=== PATIENT | male | born 1980 | race Caucasian/White ===

== ENCOUNTER 2020-10-24 15:52 | Emergency (ER) | payer MEDICAID, SELFPAY ==
[2020-10-24 15:54] VITALS: BP 144/84; PULSE 97; RESP 16; TEMP 37; O2SAT 99; BMI 19.2
--- NOTE | 2020-10-24 16:14 | RAD_ITS ---
STUDY: X-RAY - RIGHT SHOULDER REASON FOR EXAM: Male, 40 years old. Fall 4 days ago. Right shoulder pain. TECHNIQUE: 2 view(s) of the shoulder on 4 images. COMPARISON: None. FINDINGS: Normal glenohumeral articulation. Normal acromioclavicular joint. Normal acromion. Normal humeral head and visualized proximal humerus. The soft tissue structures are unremarkable. Normal visualized pulmonary apex. RAD/Shoulder min 2 Views IMPRESSION: No acute abnormality of the right shoulder. Electronically Signed: Mick Machado MD at 16:37 EST , Service support ,
--- NOTE | 2020-10-24 16:15 | RAD_ITS ---
STUDY: X-RAY - RIGHT CLAVICLE REASON FOR EXAM: Male, 40 years old. Fall 4 days ago. Right shoulder pain. TECHNIQUE: 2 view(s) of the clavicle. COMPARISON: None. FINDINGS: Normal clavicle. Normal acromioclavicular articulation. Normal visualized sternoclavicular articulation. Normal visualized pulmonary apex. RAD/Clavicle IMPRESSION: No acute abnormality in the right clavicle. Electronically Signed: Mick Machado MD at 16:37 EST , Service support ,
[2020-10-24] MEDS: Acetaminophen 500 MG Tablet 1000 MG PO (16:24)
--- NOTE | 2020-10-24 16:49 | ED.DCSUM_ITS ---
- ER Visit Summary Date of Service: 10/24/20 Chief Complaint: Right shoulder pain History of Present Illness: The patient is a 40 M with no primary care physician. He is right-hand dominant. 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 He states that 4 or 5 days ago he slipped on the ice and fell. States that he did not began having pain in his shoulder until 2 days after that. Says states that he has an aching pain in his right shoulder that is 9 out of 10 at worst and 6 out of 10 currently. Is worsened by movement. Is relieved by rest and Aleve. He reports that he has paresthesias in the back of his hand that come and go. Denies any weakness or loss of function. He denies any other injuries. Physical Examination: Vitals: Stable. Afebrile. Neck: No vertebral tenderness. Full ROM without difficulty. Cleared by NEXUS criteria. Back: No vertebral tenderness. General: A&O x 3. NAD. Cardiovascular exam: Regular rate and rhythm, no murmur, rub or gallop. Respiratory exam: Chest nontender. No crepitus. Clear to auscultation bilaterally. No wheezes or stridor. Abdominal exam: Soft, nontender, nondistended, normal bowel sounds. No pain in RUQ or LUQ specifically. No peritoneal signs. Extremity: Mild tenderness palpation over the distal third of his right clavicle. He has no point tenderness over the AC joint. He has moderate tenderness palpation over the right trapezius muscle. He has no vertebral tenderness. He has mild tenderness palpation over the lateral deltoid. There is no overlying erythema or warmth to suggest a septic joint. He has no pain with short arc movements. He has normal sensation to light touch in C5-T1 distribution. He has normal median/ulnar/radial nerve function both motor and sensory distributions. At this time he has no paresthesias to the posterior surface of his hand. Test Results: Clinical Impression(s) from Imaging Studies Shoulder X-Ray 10/24/20 16:14 IMPRESSION: No acute abnormality of the right shoulder. Electronically Signed: Mick Machado MD at 16:37 EST , Service support , Clavicle X-Ray 10/24/20 16:15 IMPRESSION: No acute abnormality in the right clavicle. Electronically Signed: Mick Machado MD at 16:37 EST , Service support , Emergency Department Course and Treatment: Patient was given Tylenol p.o. He was placed in a sling. Treatment Plan: At this time I suspect the patient's pain is really more due to his trapezius muscle than the shoulder joint itself. However, he will be discharged with naproxen and instructed to follow-up with Dr. Moore in 1 week if not improving. Return to the emergency department for any worsening symptoms. Disposition: To home in improved and stable condition. Impression: 1. Right shoulder pain, acute. This note was generated with mywaves dictation software. It may contain incorrect words, spelling, and punctuation that were not noted in review of the chart prior to signing ED Disposition - Plan for ED Patient: Instructions: ED Shoulder Pain, Uncertain Cause Prescriptions: Naproxen [Naprosyn] 500 mg PO BID #14 tablet Referrals: Abdulaziz Moore MD [STAFF PHYSICIAN] - 1 Week if not improving
[2020-10-24 17:08] VITALS: BP 140/68; PULSE 90; RESP 18; O2SAT 97
== END 2020-10-24 17:09 | disposition home or self-care (01) ==
LOC: ED 16:38
PROVIDERS: Emergency Provider Emergency Medicine
DX: M25.511 Pain in right shoulder (principal); M54.2 Cervicalgia; R20.2 Paresthesia of skin; R05 Cough; Z72.0 Tobacco use
CPT/HCPCS: 73000; 73030; 99283

== ENCOUNTER 2020-10-26 21:01 | Emergency (ER) | payer MEDICAID, SELFPAY ==
[2020-10-26 21:02] VITALS: BP 141/86; PULSE 89; RESP 18; TEMP 36.2; O2SAT 99; BMI 20.9
--- NOTE | 2020-10-26 21:30 | ED.VISSUMM ---
- ER Visit Summary Date of Service: 10/26/20 Chief Complaint: Left rib pain History of Present Illness: The patient is a 40 M who presents with left rib pain that began yesterday after a fall. Patient states he was walking when he fell and landed on his left side. Patient denies any head injury or loss of consciousness. Patient states the pain feels like a tightness or tension over his left lower ribs. Patient states the pain is worse with movement. Patient denies any paresthesias or weakness. Patient denies any other injuries. Patient is a smoker and admits to a cough. Patient denies any shortness of breath. Physical Examination: Vital signs are stable. Patient is afebrile. Patient is in no acute distress. Oral mucosa is pink and moist. Neck is supple. Trachea is midline. There is no JVD. Heart was regular rate and rhythm. Lungs are clear and equal bilateral. There is adequate respiratory effort. There is reproducible tenderness over the left lower ribs, over the sixth and seventh rib area anteriorly. Abdomen is soft. Bowel sounds are normal. There is no tenderness. Cranial nerves II through XII are intact. There is no focal motor or sensory deficits noted. Extremities are intact. There is no calf tenderness or edema. Test Results: X-rays of the left ribs were obtained. There are 5 views. On my interpretation, there is no fracture. There is no pneumothorax. There is no cardiomegaly. There is no acute cardiopulmonary process. Radiologist also interpreted the x-ray and agrees. Emergency Department Course and Treatment: Patient was advised of his findings. Patient was instructed to use ice to the area. Patient was instructed to take 10-15 deep breaths every hour while awake to prevent atelectasis and pneumonia. Patient was instructed to take Tylenol or ibuprofen as needed for pain. Patient was instructed to follow-up with his primary care physician in 5 to 7 days. Patient understood and was agreeable with the plan. All questions were answered. Disposition: Discharge home Impression: 1. Left chest wall contusion This note was generated with [employer] dictation software. It may contain incorrect words, spelling, and punctuation that were not noted in review of the chart prior to signing ED Disposition - Plan for ED Patient: Disposition: Home or Assisted Living Diagnosis: Contusion of left chest wall Instructions: ED Chest Wall Contusion Referrals: Giovanni Aldana MD [STAFF PHYSICIAN] - 5-7 Days
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
[2020-10-26 22:31] VITALS: RESP 18; O2SAT 98
== END 2020-10-26 22:32 | disposition home or self-care (01) ==
PROVIDERS: Emergency Provider Emergency Medicine
DX: S20.212A Contusion of left front wall of thorax, initial encounter (principal); W19.XXXA Unspecified fall, initial encounter; Y93.01 Activity, walking, marching and hiking; Y92.9 Unspecified place or not applicable; Y99.9 Unspecified external cause status; R05 Cough; F17.200 Nicotine dependence, unspecified, uncomplicated
CPT/HCPCS: 71101; 99282

== ENCOUNTER 2021-05-30 10:26 | Emergency (ER) | payer MEDICAID, SELFPAY ==
[2021-05-30 10:27] VITALS: BP 159/97; PULSE 103; RESP 18; TEMP 36.6; O2SAT 97; BMI 17.6
--- NOTE | 2021-05-30 10:37 | RAD_ITS ---
STUDY: X-RAY CHEST REASON FOR EXAM: 41-year-old male patient with history of shortness of breath., TECHNIQUE: Single AP portable view of the chest. COMPARISON: Comparison is made with prior study dated 11/20/2013. FINDINGS: Hyperinflation. The lungs are clear. There is no demonstrated pleural abnormality. Normal size heart. Normal mediastinum and jr. Normal visualized pulmonary arteries. Normal visualized aortic arch and descending thoracic aorta. Normal visualized thoracic spine. Normal visualized ribs, clavicles, and shoulders. There is no demonstrated abnormality of the visualized soft tissue structures of the upper abdomen. RAD/Chest 1 View (Portable) IMPRESSION: Hyperinflation. Electronically Signed: Julien Adames MD at 11:29 EDT , Service support ,
--- NOTE | 2021-05-30 10:41 | EX.ED.VIS.UR ---
HPI HPI - URI History of Present Illness Chief Complaint: Shortness of Breath Detail of Chief Complaint: Cough and URI symptoms. Informant: patient Onset/Context/Timing Onset: Weeks Context: Gradual Onset Timing: Continuous Current Severity: Mild Maximum Severity: Mild Associated Symptoms Associated Symptoms: Positive for Nasal Congestion, Myalgias and Productive Cough; Negative for Headache, Nausea, Vomiting and Hemoptysis Narrative Narrative: 41-year-old male patient with past medical history currently on no medications. He does smoke. States that last week he has had URI symptoms. Now mild shortness of breath. Worse cough of clear phlegm. No hemoptysis. Denies fever or chills. Denies nausea, vomiting or diarrhea. Was not vaccinated for Covid. Prior similar symptoms: Yes Recent Illness/Hospitalization: No ROS ROS ED ROS Narrative Cough. Rhinorrhea. Nasal congestion. Mild shortness of breath. Review of Systems ROS Unobtainable: Denies due to encephalopathy Constitutional Constitutional ED: Denies chills or fever(s) Eyes Eyes: Denies change in vision ENT ENT ED: Reports rhinorrhea; Denies ear pain or sore throat Cardiovascular Cardiovascular: Denies chest pain Respiratory/Chest Respiratory/Chest: Reports cough, dyspnea and sputum Gastrointestinal Gastrointestinal: Denies abdominal pain, diarrhea, nausea or vomiting Genitourinary Genitourinary ED: Denies dysuria Musculoskeletal Musculoskeletal: Denies myalgias Integumentary Denies rash Neurologic Neurologic: Denies headache(s) Psychiatric Psychiatric: Denies depression Endocrine Endocrinology: Denies polyuria Hematologic/Lymphatic Hematologic/Lymphatic: Denies easy bruising Allergic/Immunologic Allergic/Immunologic ED: Denies urticaria [facility] Medical History (Updated 05/30/21 @ 11:[address] Sage Mejia MD) Migraine Home Medications acetaminophen-codeine 1 - 2 tab PO Q6H PRN #12 tablet 06/29/16 [Rx Last Taken Unknown] naproxen 500 mg PO BID #14 tab 10/24/20 [Rx Last Taken Unknown] albuterol sulfate [Proventil HFA] 2 inh INHALATION Q8H PRN #6.7 g 05/30/21 [Rx Last Taken Unknown] prednisone 40 mg PO DAILY 7 Days #14 tab 05/30/21 [Rx Last Taken Unknown] Allergy/AdvReac Type Severity Reaction Status Date / Time No Known Allergies Allergy Verified 05/30/21 10:29 Social History Smoking Status: Current every day smoker tobacco type: cigarettes EXAM Physical Exam Narrative Exam Narrative: Middle-age male no acute distress vital signs stable afebrile. Pulse ox 97% room air. HEENT exam unremarkable. Neck nontender no JVD. No lymphadenopathy. Lungs expiratory wheezes throughout. Patient is a smoker. No rales or rhonchi. Heart regular rhythm rate about 100 no murmur. Abdomen soft nontender. Moving all 4 extremities. No edema. Neurologically awake and alert with no focal motor deficits. Const Vital Signs: 05/30/21 10:27 05/30/21 11:02 Temperature 98 F Temperature Source Temporal Pulse Rate 103 H Respiratory Rate 18 Respiratory Effort Normal Respiratory Depth Normal Respiratory Pattern Normal Blood Pressure 159/97 H Blood Pressure Mean 117 Pulse Ox 97 Oxygen Delivery Method Room Air Positive well nourished and well developed; Negative for obese, cachectic or contractures General Appearance ED: well developed and NAD; Negative for cachectic, contractures, cyanotic, diaphoretic or pallor Nutritional Appearance: Negative for cachectic or obese HEENT normocephalic and atraumatic External Ear: external ears normal Eyes PERRL and EOMs intact bilaterally General Eye ED: Negative for pale conjunctiva or scleral icterus Neck no lymphadenopathy, supple, no meningeal signs and no JVD General: Negative for anterior neck swelling Resp normal respiratory effort and No clear to auscultation bilaterally Effort and Inspection: Negative for retractions Auscultation: wheezes; Negative for rales, rhonchi or diminished lung sounds Cardio S1 normal heart sound, S2 normal heart sound and no murmurs Rate: regular rate Rhythm: regular rhythm GI non-tender, non-distended and no masses Inspection: Negative for abdominal distention Auscultation: normoactive bowel sounds Palpation: soft; Negative for tender or guarding Back/Spine no CVA tenderness Extremity normal to inspection and full ROM General Extremety ED: Negative for cyanosis or tenderness General Extremity: Negative for cyanosis Neuro oriented x3 Sensorium / Orientation: alert, oriented to person, oriented to place and oriented to time; Negative for orientation impaired, lethargic or stuporous Motor Exam: strength 5/5 throughout Psych mental status grossly normal Attitude: No agitated Mood & Affect: Negative for depressed or tearful Skin General Skin Exam: Negative for jaundice or pallor Lesions: no lesions Rashes: no rashes MDM MDM MDM Narrative Medical decision making narrative: Prednisone 40 mg a day for a week. Perhaps cast for the day.Middle-age male URI symptoms chest x-ray for possible pneumonia and rapid Covid test. Clinically he looks well he is not hypoxic he does not look septic or toxic. Repeat exam patient is doing well on 11:26 AM will be discharged home. Inhaler Lab Data Attestation: I reviewed the patient's lab results. Lab results narrative: Covid negative. Radiography Diagnostic Testing: Portable chest x-ray shows no acute normality. Normal cardiac silhouette. Interpreted by myself. No infiltrate. No edema. Discharge Plan Triage Chief Complaint: Shortness of Breath ED Provider: Sage Mejia Dx/Rx/DC Orders Clinical Impression: Bronchitis Instructions: ED Bronchitis, No Antibiotic (Adult) Prescriptions: New prednisone 20 mg tablet 40 mg PO DAILY 7 Days Qty: 14 RF: 0 albuterol sulfate [Proventil HFA] 90 mcg/actuation HFA aerosol inhaler 2 inh inhalation Q8H PRN (Reason: shortness of breath or wheezing) Qty: 6.7 RF: 1 No Action acetaminophen-codeine 1 TABLET tablet 1 - 2 tab PO Q6H PRN (Reason: Pain) Qty: 12 RF: 0 naproxen 500 MG tablet 500 mg PO BID Qty: 14 RF: 0 Primary Care Provider: Care Physician,No Primary Referrals: Giovanni Aldana MD [STAFF PHYSICIAN] - Care Physician,No Primary [Primary Care Provider] - Activity Restrictions/Additional Instructions: Have to stop smoking. Inhaler. 1 to 2 puffs as needed. Prednisone daily for the next week. Follow-up if not improving. Disposition Disposition: Home, Self Care
== END 2021-05-30 11:43 | disposition home or self-care (01) ==
LOC: ED 11:40
PROVIDERS: Emergency Provider Emergency Medicine
DX: J40 Bronchitis, not specified as acute or chronic (principal); Z20.822 Contact with and (suspected) exposure to COVID-19; F17.210 Nicotine dependence, cigarettes, uncomplicated; Z79.1 Long term (current) use of non-steroidal anti-inflammatories (NSAID); Z79.52 Long term (current) use of systemic steroids; Z79.899 Other long term (current) drug therapy
CPT/HCPCS: 71045; 87426; 99282

== ENCOUNTER 2021-07-17 12:42 | Emergency (ER) | payer MEDICAID, SELFPAY ==
[2021-07-17 12:42] VITALS: BP 186/100; PULSE 98; RESP 24; TEMP 36.4; O2SAT 97; BMI 17.6
--- NOTE | 2021-07-17 13:13 | ED.VIS.DYS ---
HPI History of Present Illness Chief Complaint: Shortness of Breath Narrative Narrative: 41-year-old male presenting with shortness of breath and a cough for about a week. Patient states that he does not have any fevers, chills, body aches. He states is been tested multiple times for COVID-19 and always is negative. He does admit to smoking at least a pack of cigarettes per day up until he got sick this last time. Any symptoms of been going on a week. He continues to smoke half pack cigarettes per day. He states he has not been formally diagnosed with COPD or asthma. [facility] Medical History Migraine Home Medications albuterol sulfate [Ventolin HFA] 1 - 2 puff INHALATION Q4H PRN PRN #8.5 g 07/17/21 [Rx Last Taken Unknown] prednisone 50 mg PO DAILY 5 Days #25 tab 07/17/21 [Rx Last Taken Unknown] Allergy/AdvReac Type Severity Reaction Status Date / Time No Known Allergies Allergy Verified 07/17/21 12:44 Social History Smoking Status: Current every day smoker tobacco type: cigarettes ROS ROS ED Constitutional Constitutional ED: Denies chills or fever(s) Eyes Eyes: Denies blurry vision or diplopia ENT ENT ED: Denies rhinorrhea or sore throat Cardiovascular Cardiovascular: Denies chest pain or palpitations Respiratory/Chest Respiratory/Chest: Reports cough, dyspnea and dyspnea on exertion Gastrointestinal Gastrointestinal: Denies abdominal pain, nausea or vomiting Genitourinary Genitourinary ED: Denies dysuria or hematuria Musculoskeletal Musculoskeletal: Denies arthralgias, myalgias or neck pain Integumentary Denies Abrasions or rash Neurologic Neurologic: Denies headache(s) or paresthesias EXAM Physical Exam Const Vital Signs: 07/17/21 12:42 07/17/21 13:30 07/17/21 13:35 Temperature 97.6 F L Temperature Source Temporal Pulse Rate 98 72 Respiratory Rate 24 H 18 Respiratory Effort Non-Labored Short of Breath Respiratory Pattern Normal Blood Pressure 186/100 H Blood Pressure Mean 128 Pulse Ox 97 Oxygen Delivery Method Room Air Room Air 07/17/21 15:20 Temperature Temperature Source Pulse Rate Respiratory Rate 16 Respiratory Effort Respiratory Pattern Blood Pressure 154/85 H Blood Pressure Mean Pulse Ox 96 Oxygen Delivery Method Positive well nourished General Appearance ED: NAD HEENT Reports moist mucous membranes atraumatic Eyes PERRL and EOMs intact bilaterally Resp Auscultation: wheezes throughout Cardio regular rate and regular rhythm Neuro oriented x3 and CN's II-XII intact bilaterally Sensorium / Orientation: alert Skin Lesions: no lesions Rashes: no rashes MDM MDM MDM Narrative Medical decision making narrative: Patient presenting with shortness of breath. On initial examination he is wheezing. I will give him prednisone and breathing treatments. He does not have any symptoms of a viral syndrome. Will reevaluate him after treatments on reevaluation the patient feels much improved. His respiratory rate is not 16. His pulse ox is 96%. I counseled him that he would likely need to discontinue smoking as he continues to smoke even though he is wheezing. He states that he is planning to discontinue this. He will be given a prednisone burst for 5 days as well as an albuterol inhaler. Is given return precautions. Patient stable for discharge. Impression: 1. Bronchitis with wheezing Discharge Plan Triage Chief Complaint: Shortness of Breath ED Provider: Wes Colindres Dx/Rx/DC Orders Instructions: ED Bronchitis with Wheezing (Adult) Prescriptions: New prednisone 10 mg tablet 50 mg PO DAILY 5 Days Qty: 25 RF: 0 albuterol sulfate [Ventolin HFA] 90 mcg/actuation HFA aerosol inhaler 1 - 2 puff inhalation Q4H PRN PRN (Reason: Wheezing) Qty: 8.5 RF: 0 Primary Care Provider: Care Physician,No Primary Referrals: Mery Schaefer MD [STAFF PHYSICIAN] - As soon as possible Care Physician,No Primary [Primary Care Provider] - Disposition Disposition: Home, Self Care Discharge Date/Time: 07/17/21 15:21
[2021-07-17] MEDS: Albuterol 2.5 MG/3 ML VIAL.NEB. INHALATION (13:24)
[2021-07-17] MEDS: Ipratropium/Albuterol Sulfate 3 ML AMPUL.NEB INHALATION (13:24)
[2021-07-17 13:30] VITALS: PULSE 72; RESP 18
[2021-07-17 13:35] VITALS: O2SAT 97
[2021-07-17] MEDS: predniSONE 20 MG Tablet 60 MG PO (13:37)
--- NOTE | 2021-07-17 13:51 | CM.ED ---
SW Note Referral Source: Case Find Referral Reason: No Primary Care Physician (PCP) SW reviewed chart and noted that patient has no PCP. SW provided patient with list of [facility] and [facility] Physician List for reference. SW also provided patient with handout ?Where to go When?. No other issues or concerns voiced at this time. SW remains available for any additional needs. Plan: Provided patient with PCP information Flori BUTLER
[2021-07-17 15:20] VITALS: BP 154/85; RESP 16; O2SAT 96
== END 2021-07-17 15:21 | disposition home or self-care (01) ==
PROVIDERS: Emergency Provider Student in an Organized Health Care Education/Training Program
DX: J40 Bronchitis, not specified as acute or chronic (principal); R06.2 Wheezing; F17.210 Nicotine dependence, cigarettes, uncomplicated; Z79.52 Long term (current) use of systemic steroids; Z79.899 Other long term (current) drug therapy
CPT/HCPCS: 94640; 99283; A4216

== ENCOUNTER 2021-08-01 16:05 | Emergency (ER) | payer MEDICAID, SELFPAY ==
[2021-08-01] VITALS (7 sets, daily range): BP systolic 133–164; BP diastolic 89–102; PULSE 74–99; RESP 16–22; TEMP 36.2; O2SAT 93–96; BMI 34.0
--- NOTE | 2021-08-01 16:30 | EKG12_ITS ---
Test Reason : SOB Blood Pressure : / mmHG Vent. Rate : 098 BPM Atrial Rate : 098 BPM P-R Int : 144 ms QRS Dur : 080 ms QT Int : 336 ms P-R-T Axes : 072 084 069 degrees QTc Int : 428 ms Normal sinus rhythm Normal ECG Confirmed by TARA AMARAL, ARLIN ([id number]), order editor TED GREEN ([id number]) on 08/02/2021 11:28:29 AM Referred By: CORTEZ Confirmed By:ARLIN PACHECO MD
--- NOTE | 2021-08-01 16:32 | EDS_ITS ---
HPI History of Present Illness Chief Complaint: Shortness of Breath Narrative Narrative: Patient presenting with shortness of breath and wheezing. He was recently seen by myself for similar symptoms. He does not have any fever, chills, body aches. He states he did a prednisone burst and has been using his Ventolin inhaler. He told the triage nurse that he has some pressure and he points to the upper aspect of his chest but when I asked him specifically says it feels like it is tight like when he is wheezing. He does not have radiation of this pain. He is not dizzy or lightheaded. Patient states he continues to smoke until about 24 hours ago. He states he tapered himself down first and then quit smoking. He states he has a follow-up with Dr. Thomas coming up but was told to come to the ER for a second evaluation. Patient denies any cardiac history. No DVT history or PE history and no risk factors. He states he has been tested several times for COVID-19 and has not been positive. [facility] Medical History Migraine Home Medications albuterol sulfate 1 inh INHALATION Q6H PRN #8.5 g 08/01/21 [Rx Last Taken Unknown] prednisone 50 mg PO DAILY 5 Days #25 tab 08/01/21 [Rx Last Taken Unknown] Allergy/AdvReac Type Severity Reaction Status Date / Time No Known Allergies Allergy Verified 08/01/21 16:07 Social History Smoking Status: Current every day smoker tobacco type: cigarettes ROS ROS ED Constitutional Constitutional ED: Denies chills or fever(s) Eyes Eyes: Denies blurry vision or diplopia ENT ENT ED: Denies rhinorrhea or sore throat Cardiovascular Cardiovascular: Denies chest pain, orthopnea or palpitations Respiratory/Chest Respiratory/Chest: Reports cough and dyspnea; Denies orthopnea or sputum Gastrointestinal Gastrointestinal: Denies abdominal pain or nausea Genitourinary Genitourinary ED: Denies dysuria or hematuria Musculoskeletal Musculoskeletal: Denies arthralgias or myalgias Integumentary Denies abscess or rash Neurologic Neurologic: Denies headache(s) or paresthesias Psychiatric Psychiatric: Denies anxiety or depression EXAM Physical Exam Const Vital Signs: 08/01/21 16:05 08/01/21 16:48 08/01/21 16:50 Temperature 97.2 F L Temperature Source Temporal Pulse Rate 96 99 Respiratory Rate 22 H 16 Respiratory Effort Respiratory Depth Respiratory Pattern Normal Blood Pressure 164/102 H Blood Pressure Mean 122 Pulse Ox 95 93 Oxygen Delivery Method Room Air Room Air 08/01/21 16:51 08/01/21 17:42 08/01/21 18:02 Temperature Temperature Source Pulse Rate 74 96 Respiratory Rate 16 20 H Respiratory Effort Short of Breath Respiratory Depth Normal Respiratory Pattern Normal Blood Pressure 133/89 H Blood Pressure Mean 103 Pulse Ox 94 95 Oxygen Delivery Method Room Air Room Air Room Air Positive well nourished General Appearance ED: NAD; Negative for pallor HEENT Reports moist mucous membranes atraumatic Eyes PERRL and EOMs intact bilaterally Resp normal respiratory effort Auscultation: wheezes expiratory wheezes Cardio regular rate and regular rhythm Neuro oriented x3, CN's II-XII intact bilaterally and no sensory deficits noted Sensorium / Orientation: alert Motor Exam: strength 5/5 throughout Psych mental status grossly normal Thought Process: normal thought process Skin General Skin Exam: Negative for jaundice or pallor Rashes: no rashes MDM MDM MDM Narrative Medical decision making narrative: 41-year-old male presenting with shortness of breath. He does describe describe some tightness that is in his chest which is similar to previous episodes when he has been wheezing. He has no formal diagnosis of COPD but is a smoker. He states that he quit smoking 24 hours ago and weaned himself down since his last visit although the patient still smells like cigarettes. I suspect this tightness is from wheezing and probably undiagnosed COPD as it does not appear to be anginal in nature. Given that the michelle schwarz has been here several times without blood work-up I will check basic labs, troponin, chest x-ray. In addition to this I will give him Solu-Medrol and breathing treatments. EKG on my interpretation shows a sinus rhythm with a ventricular rate of 98 bpm without sign of ischemic change or dysrhythmia. Chest x-ray my interpretation shows no acute cardiopulmonary process and the radiologist does agree. He does not have any viral symptoms so I do not need to test for COVID-19. Patient CBC and BMP are unremarkable. Troponin is 8. I do not suspect ACS. Patient feels better after breathing treatments and Solu- Medrol. He is counseled to keep it standing from smoking. He will follow-up with Dr. Thomas. I did refill his albuterol and gave him another prednisone burst. Lab Data Attestation: I reviewed the patient's lab results. Labs: Laboratory Results - last 24 hr 08/01/21 08/01/21 16:40 16:40 WBC 7.1 RBC 4.99 Hgb 16.5 Hct 48.3 MCV 96.8 H MCH 33.1 H MCHC 34.2 RDW Std Deviation 44.1 H RDW Coeff of Alice 12.5 Plt Count 295 MPV 8.6 Immature Gran % (Auto) 0.300 Neut % (Auto) 48.5 Lymph % (Auto) 33.4 [place] % (Auto) 10.3 H Eos % (Auto) 6.2 H Baso % (Auto) 1.3 H Absolute Neuts (auto) 3.5 Absolute Lymphs (auto) 2.37 Nucleated RBC % 0 Sodium 139 Potassium 4.0 Chloride 105 Carbon Dioxide 28.0 Anion Gap 6 BUN 4 L Creatinine 0.96 Estim Creat Clear Calc 110.02 Est GFR (MDRD) Af Amer 110 Est GFR (MDRD) Non-Af 91 BUN/Creatinine Ratio 4.2 L Glucose 95 Calcium 9.0 Troponin I High Sens 8 Radiography Diagnostic Testing: Clinical Impression(s) from Imaging Studies Chest X-Ray 08/01/21 16:56 IMPRESSION: No radiographic evidence of acute cardiopulmonary disease. at 1713 Reported and signed by: Ricardo Salazar MD Electronically Signed: Ricardo Salazar MD at 17:12 EST Tel , Service support , Discharge Plan Triage Chief Complaint: Shortness of Breath ED Provider: Wes Colindres Dx/Rx/DC Orders Instructions: ED Bronchitis with Wheezing (Adult) Prescriptions: New albuterol sulfate 90 mcg/actuation HFA aerosol inhaler 1 inh inhalation Q6H PRN (Reason: shortness of breath or wheezing) Qty: 8.5 RF: 0 prednisone 10 mg tablet 50 mg PO DAILY 5 Days Qty: 25 RF: 0 Primary Care Provider: Edwin Thomas NP Referrals: Edwin Thomas NP, LIQUID FLAVOR COMPOUNDER-C [Primary Care Provider] - Disposition Disposition: Home, Self Care
[2021-08-01] MEDS: MethylPREDNISolone 125 MG/2 ML Vial IV (16:42)
[2021-08-01 16:46] LABS: Absolute Lymphocyte Count 2.37 X10^3/uL (0.83-4.51); Absolute Neutrophil Count 3.5 X10^3/uL (2.0-7.7); Basophil# 0.09 X10^3/uL; Basophil% 1.3 % (0-1); Eosinophil# 0.44 X10^3/uL; Eosinophils% 6.2 % (0-5); Hematocrit 48.3 % (40-54); Hemoglobin 16.5 g/dL (13.0-16.5); Lymphocyte # 2.37 X10^3/ul (0.83-4.51); Lymphocyte % 33.4 % (19-41); Mean Corp Hgb Conc 34.2 g/dL (32-36); Mean Corpuscular Hgb 33.1 pg (27.0-32.0); Mean Corpuscular Volume 96.8 fL (80-94); Mean Platelet Vol. 8.6 fl (6.2-12.0); Monocyte# 0.73 X10^3/uL; Monocyte% 10.3 % (0-10); NRBC Flagged by Analyzer 0 % (0-5); Neutrophil # 3.45 X10^3/uL (2.7-7.7); Neutrophil % 48.5 % (47-70); Platelet Count 295 K/mm3 (150-450); RBC Distribution Width CV 12.5 % (11.6-14.6); RBC Distribution Width SD 44.1 fl (35.1-43.9); Red Blood Count 4.99 M/mm3 (4.6-6.2); White Blood Count 7.1 K/mm3 (4.4-11.0)
[2021-08-01] MEDS: Albuterol 2.5 MG/3 ML VIAL.NEB. INHALATION (16:48)
[2021-08-01] MEDS: Ipratropium/Albuterol Sulfate 3 ML AMPUL.NEB INHALATION (16:48)
--- NOTE | 2021-08-01 16:56 | RAD_ITS ---
HISTORY: dyspnea EXAMINATION/TECHNIQUE: XR Chest 1 View: Portable upright AP chest x-ray COMPARISON: 05/30/21 FINDINGS: LINES/DEVICES: None. LUNGS: No consolidation, edema or effusion. No pneumothorax. MEDIASTINUM AND CARDIOVASCULAR STRUCTURES: Cardiac silhouette not enlarged. Central airways and mediastinal contour are unremarkable. BONES AND SOFT TISSUES: No acute bony abnormalities. RAD/Chest 1 View (Portable) IMPRESSION: No radiographic evidence of acute cardiopulmonary disease. at 1713 Reported and signed by: Ricardo Salazar MD Electronically Signed: Ricardo Salazar MD at 17:12 EST Tel , Service support ,
[2021-08-01 17:06] LABS: Anion Gap 6 (5-15); BUN 4 mg/dL (7-18); BUN/Creat Ratio 4.2 RATIO (10-20); Chloride 105 mmol/L (98-107); Creatinine, Serum 0.96 mg/dL (0.70-1.30); EST Glomerular Filtration Rate 91 mL/min (>60); Est Glom Filt Rate - Afr Amer 110 mL/min (>60); Estimated Creatinine Clearance 110.02 ml/min; Glucose 95 mg/dL (74-106); Sodium Level 139 mmol/L (136-145); Troponin-I HS 8 pg/mL (3.0-78.0)
== END 2021-08-01 18:14 | disposition home or self-care (01) ==
PROVIDERS: Emergency Provider Student in an Organized Health Care Education/Training Program; PCP Nurse Practitioner Family
DX: R06.02 Shortness of breath (principal); R06.2 Wheezing; F17.210 Nicotine dependence, cigarettes, uncomplicated
CPT/HCPCS: 71045; 80048; 84484; 85025; 93005; 94640; 96374; 99284

== ENCOUNTER 2021-10-29 09:55 | Emergency (ER) | payer MEDICAID, SELFPAY ==
[2021-10-29 09:56] VITALS: BP 143/86; PULSE 82; RESP 18; TEMP 35.9; O2SAT 99; BMI 18.3
--- NOTE | 2021-10-29 10:54 | CT_ITS ---
EXAM: CT ANGIOGRAPHY CHEST WITHOUT AND WITH INTRAVENOUS CONTRAST CLINICAL INDICATION: Acute onset back pain after pushing vehicle out of snow TECHNIQUE: Helically acquired angiography images were obtained of the chest without and with intravenous contrast. This CT exam was performed using one or more of the following dose reduction techniques: automated exposure control, adjustment of the mA and/or kV according to patient size, and/or use of iterative reconstruction technique. This report was created using Tap[employer] report generation technology. MIP reconstructed images were created and reviewed. CONTRAST: IV 100mL [id number] COMPARISON: None. FINDINGS: PULMONARY ARTERIES: Unremarkable. Normal in caliber. No evidence of pulmonary embolism. AORTA: Unremarkable. Normal in caliber. No evidence of dissection. GREAT VESSELS OF AORTIC ARCH: Unremarkable. Normal in caliber. No evidence of dissection. LUNGS AND PLEURAL SPACES: Numerous thin-walled cysts in the upper more than lower lung zones. No discrete pulmonary nodule/mass. No airspace consolidation. No groundglass opacities. No pleural effusion or thickening. HEART: Unremarkable. Heart size is normal. No pericardial effusion. No signs of right heart strain. MEDIASTINUM: Unremarkable. No mediastinal or hilar adenopathy. Esophagus is unremarkable. No hiatal hernia. THYROID: Unremarkable. No thyroid lesions. BONES/JOINTS: Mild compression fracture of T6 involving the superior endplate, age-indeterminate. No suspicious lytic or blastic abnormality. CT/CTA Chest W/WO Contrast IMPRESSION: 1. No thoracic aortic aneurysm/dissection. No central or segmental pulmonary embolism. 2. Numerous upper lobe dominant parenchymal cysts may represent centrilobular emphysema although other causes of cystic lung disease possible. 3. Mild T6 compression fracture. Electronically Signed: Eric Sanabria MD ([place]) at 12:02 EST ,
--- NOTE | 2021-10-29 11:05 | EDS_ITS ---
HPI History of Present Illness Chief Complaint: Back Informant: patient Narrative Narrative: Patient is a 41-year-old male with history of COPD and tobacco use presenting with back pain. Patient states he was pushing his wound that was stuck in the snow. 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 This was this morning. He suddenly felt 3-4 pops in his back and he helped. He had immediate severe pain and felt that the wind was knocked out of him. He states now whenever he takes a deep breath he has pain. He states the pain is worse behind both of his shoulder blades. He denies any shortness of breath but notes it is worse if he takes a deep breath. Also worse if he tries to lift up his arms. He denies any associated numbness or tingling. No abdominal pain, nausea or vomiting. No syncope. States it does radiate into his chest as well. Prior similar symptoms: No PFSH PFSH Medical History COPD (chronic obstructive pulmonary disease) Dyspnea Migraine Tobacco abuse Home Medications albuterol sulfate 1 inh INHALATION Q6H PRN #8.5 g 08/01/21 [Rx Last Taken Unknown] budesonide-formoterol HFA 160 mcg-4.5 mcg/actuation aerosol inhaler 2 puff INHALATION BID #10.2 g 08/08/21 [Rx Last Taken Unknown] cyclobenzaprine 10 mg PO TID PRN #14 tab 10/29/21 [Rx Last Taken Unknown] hydrocodone-acetaminophen 1 tab PO Q6H PRN 3 Days #12 tab 10/29/21 [Rx Last Taken Unknown] Allergy/AdvReac Type Severity Reaction Status Date / Time No Known Allergies Allergy Verified 10/29/21 09:59 Family History Daughter No problems noted. Son Asthma Father Throat cancer Social History Smoking Status: Current every day smoker tobacco type: cigarettes alcohol intake: current alcohol intake frequency: holidays/special occasions only Alcohol type: hard liquor substance use type: does not use what type of physical activity do you participate in: none do you feel safe at home: Yes ROS ROS ED Constitutional Constitutional ED: Denies chills or fever(s) Eyes Eyes: Denies change in vision ENT ENT ED: Denies sore throat Cardiovascular Cardiovascular: Reports chest pain Respiratory/Chest Respiratory/Chest: Denies dyspnea or sputum Gastrointestinal Gastrointestinal: Denies abdominal pain, nausea or vomiting Musculoskeletal Musculoskeletal: Reports back pain; Denies arthralgias, myalgias or neck pain Integumentary Denies rash Neurologic Neurologic: Denies headache(s), paresthesias or weakness Psychiatric Psychiatric: Denies depression EXAM Physical Exam Const Vital Signs: 10/29/21 09:56 Temperature 96.7 F L Temperature Source Temporal Pulse Rate 82 Respiratory Rate 18 Blood Pressure 143/86 H Blood Pressure Mean 105 Pulse Ox 99 Oxygen Delivery Method Room Air Positive well nourished and well developed General Appearance ED: well developed and other thin HEENT Reports moist mucous membranes Negative for trauma Eyes PERRL and EOMs intact bilaterally Neck supple and no JVD General: Negative for tenderness Resp normal respiratory effort and clear to auscultation bilaterally Cardio regular rate, regular rhythm and no murmurs Cardio Narrative: 2+ radial and PT pulses GI normal to inspection, nondistended, normoactive bowel sounds Back/Spine Back/Spine Narrative: No midline tenderness. Not highly reproducible on exam. He does have some mild tenderness between the spine and left scapula. Extremity normal to inspection General Extremety ED: Negative for edema or tenderness General Extremity: Negative for edema Neuro oriented x3 and no sensory deficits noted Sensorium / Orientation: alert Motor Exam: strength 5/5 throughout Psych mental status grossly normal Skin no rashes or lesions noted and no wounds MDM MDM MDM Narrative Medical decision making narrative: Patient is evaluated for chest and back pain after he tried to move his car. The pain is not highly reproducible and does not localize well. Blood pressure significant for mild hypertension. He has equal peripheral pulses. I am concerned that he might have a dissection or pneumothorax that is causing his pain on top of muscle skeletal etiology. CTA of the chest obtained which does not show any acute aortic dissection or other acute mediastinal abnormalities. No pneumothorax. He does have an age- indeterminate mild compression fracture of T6. His pain does not be worse in the paraspinal region of T6 but he does not have pinpoint tenderness over the b one. Will refer for Ortho/spine follow-up outpatient. Will treat with muscle relaxer and a short course of [place]. Patient does have improvement of pain after dose of morphine. Patient is neuro vastly intact and ambulatory. He is given a work note for today. He is counseled on return precautions. He verbalized agreement understands plan. Discharged home in stable condition. Lab Data Attestation: I reviewed the patient's lab results. Labs: Laboratory Results - last 24 hr 10/29/21 10/29/21 11:20 11:20 WBC 8.0 RBC 4.68 Hgb 16.1 Hct 46.8 MCV 100.0 H MCH 34.4 H MCHC 34.4 RDW Std Deviation 45.4 H RDW Coeff of [place] 12.2 Plt Count 334 MPV 8.6 Immature Gran % (Auto) 0.500 Neut % (Auto) 56.9 Lymph % (Auto) 29.3 [place] % (Auto) 9.0 Eos % (Auto) 3.4 Baso % (Auto) 0.9 Absolute Neuts (auto) 4.6 Absolute Lymphs (auto) 2.34 Nucleated RBC % 0 Sodium 138 Potassium 3.8 Chloride 104 Carbon Dioxide 33.0 H Anion Gap 1 L BUN 6 L Creatinine 0.95 Estim Creat Clear Calc 87.73 Est GFR (MDRD) Af Amer 112 Est GFR (MDRD) Non-Af 92 BUN/Creatinine Ratio 6.3 L Glucose 103 Calcium 8.9 Total Bilirubin 0.30 AST 23 ALT 33 Alkaline Phosphatase 89 Total Protein 7.2 Albumin 4.0 Globulin 3.2 Albumin/Globulin Ratio 1.2 Radiography Diagnostic Testing: Clinical Impression(s) from Imaging Studies Chest CTA 10/29/21 10:54 IMPRESSION: 1. No thoracic aortic aneurysm/dissection. No central or segmental pulmonary embolism. 2. Numerous upper lobe dominant parenchymal cysts may represent centrilobular emphysema although other causes of cystic lung disease possible. 3. Mild T6 compression fracture. Electronically Signed: Eric Sanabria MD ([place]) at 12:02 EST , Discharge Plan Triage Chief Complaint: Back ED Provider: Krupa Fowler Dx/Rx/DC Orders Clinical Impression: Strain of muscle and tendon of back wall of thorax, initial encounter, Compression fracture of T6 vertebra Instructions: ED Back Pain (Acute or Chronic), ED Fracture, Vertebral Compression Prescriptions: New cyclobenzaprine 10 mg tablet 10 mg PO TID PRN (Reason: muscle spasm) Qty: 14 RF: 0 hydrocodone-acetaminophen 5-325 mg tablet 1 tab PO Q6H PRN (Reason: pain) 3 Days Qty: 12 RF: 0 No Action budesonide-formoterol [Symbicort] 160-4.5 mcg/actuation HFA aerosol inhaler 2 puff inhalation BID Qty: 10.2 RF: 1 albuterol sulfate 90 mcg/actuation HFA aerosol inhaler 1 inh inhalation Q6H PRN (Reason: shortness of breath or wheezing) Qty: 8.5 RF: 0 Primary Care Provider: Edwin Thomas NP Referrals: Naldo Ahn DO [STAFF PHYSICIAN] - As Needed Edwin Thomas NP, COMPUTER REPAIR TECHNICIAN-C [Primary Care Provider] - Activity Restrictions/Additional Instructions: Your CT shows compression fracture of your T6 vertebrae. Is not clear if this is an old injury or new today. You been referred to orthopedic spine doctor, Dr. Ahn to follow-up on this. You can alternate Tylenol and ibuprofen as well needed for pain. Remember that if you are taking the [place] there is Tylenol not as well so do not take additional Tylenol with the [place]. Disposition Disposition: Home, Self Care
[2021-10-29] MEDS: Morphine 4 MG/ML Syringe IV (11:19)
[2021-10-29 11:39] LABS: Absolute Lymphocyte Count 2.34 X10^3/uL (0.83-4.51); Absolute Neutrophil Count 4.6 X10^3/uL (2.0-7.7); Basophil# 0.07 X10^3/uL; Basophil% 0.9 % (0-1); Eosinophil# 0.27 X10^3/uL; Eosinophils% 3.4 % (0-5); Hematocrit 46.8 % (40-54); Hemoglobin 16.1 g/dL (13.0-16.5); Lymphocyte # 2.34 X10^3/ul (0.83-4.51); Lymphocyte % 29.3 % (19-41); Mean Corp Hgb Conc 34.4 g/dL (32-36); Mean Corpuscular Hgb 34.4 pg (27.0-32.0); Mean Platelet Vol. 8.6 fl (6.2-12.0); Monocyte# 0.72 X10^3/uL; NRBC Flagged by Analyzer 0 % (0-5); Neutrophil # 4.55 X10^3/uL (2.7-7.7); Neutrophil % 56.9 % (47-70); Platelet Count 334 K/mm3 (150-450); RBC Distribution Width CV 12.2 % (11.6-14.6); RBC Distribution Width SD 45.4 fl (35.1-43.9); Red Blood Count 4.68 M/mm3 (4.6-6.2)
[2021-10-29 11:58] LABS: ALB/GLOB Ratio 1.2 RATIO (0.9-2.4); AST(SGOT) 23 U/L (15-37); Alanine Aminotransfer ALT/SGPT 33 U/L (16-61); Alkaline Phosphatase 89 U/L (45-117); Anion Gap 1 (5-15); BUN 6 mg/dL (7-18); BUN/Creat Ratio 6.3 RATIO (10-20); Calcium,Total 8.9 mg/dL (8.5-10.1); Chloride 104 mmol/L (98-107); Creatinine, Serum 0.95 mg/dL (0.70-1.30); EST Glomerular Filtration Rate 92 mL/min (>60); Est Glom Filt Rate - Afr Amer 112 mL/min (>60); Estimated Creatinine Clearance 87.73 ml/min; Globulin 3.2 g/dL (2.2-4.2); Glucose 103 mg/dL (74-106); Potassium 3.8 mmol/L (3.5-5.1); Protein, Total 7.2 g/dL (6.4-8.2); Sodium Level 138 mmol/L (136-145)
== END 2021-10-29 13:20 | disposition home or self-care (01) ==
PROVIDERS: Emergency Provider Emergency Medicine; PCP Nurse Practitioner Family; Visit Provider Emergency Medicine
DX: S39.012A Strain of muscle, fascia and tendon of lower back, initial encounter (principal); M48.54XA Collapsed vertebra, not elsewhere classified, thoracic region, initial encounter for fracture; J44.9 Chronic obstructive pulmonary disease, unspecified; X50.9XXA Other and unspecified overexertion or strenuous movements or postures, initial encounter; I10 Essential (primary) hypertension; Z79.899 Other long term (current) drug therapy; F17.210 Nicotine dependence, cigarettes, uncomplicated
CPT/HCPCS: 71275; 80053; 85025; 96374; 99282; Q9967; A4216

== ENCOUNTER 2021-11-28 10:31 | Outpatient (CLI) | payer MEDICAID, SELFPAY ==
--- NOTE | 2021-11-28 12:57 | PFT ---
INTRODUCTION: The patient is a 41-year-old male that presents for pulmonary function studies secondary to a diagnosis of dyspnea. Respiratory therapy reported good patient effort. Bronchodilators were used during testing. INTERPRETATION: Forced expiration spirometry demonstrates the presence of a moderate large airways obstructive ventilatory defect. There was no significant response to aerosolized bronchodilators. Spirograms are of good quality but do not plateau indicating slow emptying of the lungs. Body plethysmography was performed and revealed a decreased TLC to 4.78 L, 64% of predicted, indicative of a moderate restrictive ventilatory impairment. Diffusing capacity by single breath CO is at the lower limits of normal. IMPRESSION: Irreversible moderate mixed ventilatory defect. Diffusing capacity is at the lower limits of normal.
== END 2021-11-28 23:59 | disposition home or self-care (01) ==
LOC: PSN 10:32
PROVIDERS: PCP Nurse Practitioner Family; Referring Provider Nurse Practitioner Family; Visit Provider Nurse Practitioner Family
DX: R06.00 Dyspnea, unspecified (principal)
CPT/HCPCS: 94060; 94726; 94729

== ENCOUNTER 2023-04-13 15:14 | Emergency (ER) | payer MEDICAID, SELFPAY ==
[2023-04-13 15:17] VITALS: BP 169/78; PULSE 92; RESP 18; TEMP 37.1; O2SAT 98; BMI 21.1
--- NOTE | 2023-04-13 15:49 | EDS_ITS ---
HPI History of Present Illness Chief Complaint: Chest Pain Informant: patient Narrative Narrative: Patient thinks long ago at work he broke a rib on the right side. Ever since then he occasionally has recurrent pains in that area. This happened again, starting 3 days ago he was leaning over the fender of his car to work on it, when he applied the wrong kind of pressure to his rib cage and felt the pain suddenly returned. Usually by now it has gone away but now it has not and it has been 3 days. Hurts to breathe, hurts to move in certain ways, no dyspnea. He has COPD which has been relatively stable recently. [facility] Medical History COPD (chronic obstructive pulmonary disease) Dyspnea Migraine Tobacco abuse Home Medications cyclobenzaprine 10 mg tablet 10 mg PO TID PRN muscle spasm #14 tabs 10/29/21 [Rx Last Taken Unknown] hydrocodone-acetaminophen 5-325mg 5mg-325mg 1 tab PO Q6H PRN pain 3 days #12 tabs 10/29/21 [Rx Last Taken Unknown] nicotine 21mg/24hr-14mg/24hr-7mg/24hr daily transderm patches,sequentl 1 patch transdermal QDAY #70 patches 02/06/22 [Rx Last Taken Unknown] varenicline 0.5 mg (11)-1 mg (42) tablets in a dose pack (Chantix Starting Month Box) See Rx Instructions PO PER PKG DIR #53 tabs 02/06/22 [Rx Last Taken Unknown] albuterol sulfate 90 mcg/actuation aerosol inhaler 1 inh inhalation Q6H PRN shortness of breath or wheezing #8.5 grams 02/14/22 [Rx Last Taken Unknown] Symbicort 160 mcg-4.5 mcg/actuation HFA aerosol inhaler (budesonide-formoterol) 2 puff inhalation BID #10.2 grams 12/03/22 [Rx Last Taken Unknown] Allergy/AdvReac Type Severity Reaction Status Date / Time No Known Allergies Allergy Verified 04/13/23 15:16 Family History Daughter No problems noted. Son Asthma Father Throat cancer Social History Smoking Status: Current every day smoker tobacco type: cigarettes alcohol intake: current alcohol intake frequency: holidays/special occasions only Alcohol type: hard liquor substance use type: does not use what type of physical activity do you participate in: none do you feel safe at home: Yes ROS ROS ED Constitutional Constitutional ED: Denies chills or fever(s) Cardiovascular Cardiovascular: Reports as per HPI and chest pain; Denies syncope Respiratory/Chest Respiratory/Chest: Denies dyspnea EXAM Physical Exam Const Vital Signs: 04/13/23 15:17 Temperature 98.7 F Temperature Source Temporal Pulse Rate 92 Respiratory Rate 18 Blood Pressure 169/78 H Blood Pressure Mean 108 Pulse Ox 98 Oxygen Delivery Method Room Air Positive well nourished and well developed General Appearance ED: well developed and NAD Neck supple Chest Wall Chest Narrative: point tender right anterior axillary line approximately rib #6, there is some slight crepitance especially when he takes a deep breath at this area. No flail. Equal breath sounds bilaterally. Splints with deep inspiration, but no distress and able to speak in full sentences. Resp normal respiratory effort and clear to auscultation bilaterally Cardio regular rate and regular rhythm Rate: Negative for tachycardic GI normal to inspection, nondistended, normoactive bowel sounds Extremity normal to inspection Extremity Narrative: from Neuro oriented x3, CN's II-XII intact bilaterally and no sensory deficits noted Sensorium / Orientation: alert Motor Exam: strength 5/5 throughout MDM MDM MDM Narrative Medical decision making narrative: 4 view x-ray series of the right ribs including a PA chest negative/normal on my interpretation except for hyperexpansion consistent with COPD. Radiology in agreement. Patient declines prescription analgesics, he is okay doing ibuprofen, it is possible this is related to strain of intercostal muscle but if he is feeling crepitance is also possible that this is a small crack in the rib that either had a nonunion or malunion and he reopened, the x-rays are not sensitive enough to rule those out, and this is not near sternal costal joint. Supportive care advised regardless. Radiography Diagnostic Testing: Clinical Impression(s) from Imaging Studies Ribs w/Chest X-Ray 04/13/23 16:05 IMPRESSION: RIBS: Normal x-ray examination of the ribs. CHEST: Normal x-ray examination of the chest. Electronically Signed: Timothy Lynch MD at 16:34 EDT , Discharge Plan Triage Chief Complaint: Chest Pain ED Provider: Alfred Gutierrez Dx/Rx/DC Orders Clinical Impression: Rib pain on right side Instructions: ED Rib Contusion or Minor Fracture Prescriptions: No Action nicotine 21-14-7 mg/24 hr patch, TD daily, sequential 1 patch transdermal QDAY Qty: 70 0RF Rx Instructions: Apply 21 mg patch daily FOR 6 weeks, then 14 mg patch daily FOR 2 weeks, then 7 mg patch daily FOR 2 weeks. varenicline [Chantix Starting Month Box] 0.5 mg (11)- 1 mg (42) tablets,dose pack See Rx Instructions PO PER PKG DIR Qty: 53 1RF Rx Instructions: PO PER PKG DIR cyclobenzaprine 10 mg tablet 10 mg PO TID PRN (Reason: muscle spasm) Qty: 14 0RF hydrocodone-acetaminophen 5-325 mg tablet 1 tab PO Q6H PRN (Reason: pain) 3 Days Qty: 12 0RF albuterol sulfate 90 mcg/actuation HFA aerosol inhaler 1 inh inhalation Q6H PRN (Reason: shortness of breath or wheezing) Qty: 8.5 3RF budesonide-formoterol [Symbicort] 160-4.5 mcg/actuation HFA aerosol inhaler 2 puff inhalation BID Qty: 10.2 3RF Primary Care Provider: Edwin Thomas NP Referrals: Edwin Thomas NP, WINDING MACHINE OPERATOR-C [Primary Care Provider] - 1 Week if not improving Disposition Disposition: Home, Self Care
--- NOTE | 2023-04-13 16:05 | RAD_ITS ---
STUDY: X-RAY - UNILATERAL RIBS ( RIGHT ) WITH CHEST REASON FOR EXAM: Male, 43 years old. pain/injury ?#6 ant ax line TECHNIQUE - RIBS: 4 view(s) of the ribs. TECHNIQUE - CHEST: Single PA view of the chest. COMPARISON: 08/01/2021 FINDINGS - RIBS: Normal visualized ribs without a demonstrated fracture. FINDINGS - CHEST: The lungs are clear and expanded. There is no demonstrated pleural abnormality. Normal size heart. Normal mediastinum and jr. Normal visualized pulmonary arteries. Normal visualized aortic arch and descending thoracic aorta. Normal visualized thoracic spine. Normal visualized ribs, clavicles, and shoulders. There is no demonstrated abnormality of the visualized soft tissue structures of the upper abdomen. RAD/Ribs Uni Min 3V w/PA Chest IMPRESSION: RIBS: Normal x-ray examination of the ribs. CHEST: Normal x-ray examination of the chest. Electronically Signed: Timothy Lynch MD at 16:34 EDT ,
[2023-04-13 17:02] VITALS: BP 125/95; PULSE 85
== END 2023-04-13 17:03 | disposition home or self-care (01) ==
PROVIDERS: Emergency Provider Emergency Medicine; PCP Nurse Practitioner Family; Visit Provider Emergency Medicine
DX: R07.81 Pleurodynia (principal); J44.9 Chronic obstructive pulmonary disease, unspecified; F17.210 Nicotine dependence, cigarettes, uncomplicated; Z79.51 Long term (current) use of inhaled steroids
CPT/HCPCS: 71101; 99283